=== PATIENT | female | born 1985 | race African-American/Black ===

== ENCOUNTER 2016-08-12 12:55 | Emergency (ER) | payer MEDICAID ==
[~2016-08-12] VITALS: Ht 167.6 cm; Wt 95.0 kg
[2016-08-12 12:58] VITALS: BP 145/92
[2016-08-12] MEDS ORDERED: KETOROLAC 60MG/2ML VIAL IM ONE (16:30)
== END 2016-08-12 17:18 | disposition home or self-care (01) ==
LOC: ER 13:44
DX: S39.012A Strain of muscle, fascia and tendon of lower back, initial encounter (principal); S29.9XXA Unspecified injury of thorax, initial encounter; M79.601 Pain in right arm; M79.602 Pain in left arm; R51 Headache; F17.200 Nicotine dependence, unspecified, uncomplicated; V49.9XXA Car occupant (driver) (passenger) injured in unspecified traffic accident, initial encounter; Y93.89 Activity, other specified; Y92.89 Other specified places as the place of occurrence of the external cause; Y99.8 Other external cause status
CPT/HCPCS: 71020; 96372; 99284; J1885